=== PATIENT | female | born 1985 | race Caucasian/White ===

== ENCOUNTER 2017-08-03 17:30 | Emergency (ER) | payer MEDICAID ==
[~2017-08-03] VITALS: Ht 172.7 cm; Wt 64.8 kg
[~2017-08-03 17:30] MED LIST: ALBU8.5H5 INH; CARB200T2 PO; PROM25AM6 PO
[2017-08-03] MEDS ORDERED: SODIUM CHLORIDE FLUSH 10ML SYR IVF ONE (18:00)
[2017-08-03] MEDS ORDERED: SODIUM CHLORIDE 0.9% 1,000ML IVBOLUS ONE (18:00)
[2017-08-03] MEDS ORDERED: METOCLOPRAMIDE 5 MG/ML, 2ML IVPush ONE (18:00)
[2017-08-03] MEDS ORDERED: METOCLOPRAMIDE 5 MG/ML, 2ML ONE (18:14)
[2017-08-03] MEDS ORDERED: MORPHINE SULFATE 4 MG/ML, 1ML ONE ×2 (18:14→19:02)
[2017-08-03 18:19] LABS: BASOPHILS # (AUTO) 0.05 x10^3/uL (0-0.1); BASOPHILS % (AUTO) 1 % (0-1); EOSINOPHILS # (AUTO) 0.04 x10^3/uL (0-0.4); EOSINOPHILS % (AUTO) 1 % (1-7); LYMPHOCYTES # (AUTO) 1.78 x10^3/uL (1-3.4); LYMPHOCYTES % (AUTO) 29 % (22-44); MD NO; MEAN PLATELET VOLUME 8.1 fL (7.4-10.4); MONOCYTES # (AUTO) 0.29 x10^3/uL (0.2-0.8); MONOCYTES % (AUTO) 5 % (2-9); NEUTROPHILS # (AUTO) 3.96 x10^3/uL (1.8-6.8); NEUTROPHILS % (AUTO) 65 % (42-75); PLATELET COUNT 208 x10^3/uL (130-400); RED BLOOD COUNT 4.34 x10^6/uL (3.82-5.3); RED CELL DISTRIBUTION WIDTH 13.2 % (9.6-15.2)
[2017-08-03] MEDS: MORPHINE SULFATE 4 MG/ML, 1ML IVPush PRN ×3 (18:20→19:04)
[2017-08-03 18:29] LABS: ALANINE AMINOTRANSFERASE 36 U/L (12-78); ALBUMIN 4.1 g/dL (3.4-5.0); ANION GAP 8 mmol/L (5-15); CALCIUM 8.7 mg/dL (8.5-10.1); CHLORIDE 114 mmol/L (98-107); CREATININE 0.78 mg/dL (0.55-1.02)
[2017-08-03 18:43] LABS: ALKALINE PHOSPHATASE 82 U/L (45-117); BILIRUBIN,TOTAL 0.3 mg/dL (0.2-1.0); TOTAL PROTEIN 7.2 g/dL (6.4-8.2)
[2017-08-03 18:57] VITALS: BP 108/72
[2017-08-03 19:10] LABS: MICROSCOPIC INDICATED
[2017-08-03 19:21] LABS: CULTURE INDICATED? NO
== END 2017-08-03 20:01 | disposition home or self-care (01) ==
LOC: ED 19:45
DX: R10.9 Unspecified abdominal pain (principal); R11.2 Nausea with vomiting, unspecified; J45.909 Unspecified asthma, uncomplicated; Z87.442 Personal history of urinary calculi; Z90.710 Acquired absence of both cervix and uterus
CPT/HCPCS: 36415; 74176; 80053; 81001; 85025; 96361; 96374; 96375; 96376; 99285; J2765; J7030

== ENCOUNTER 2018-09-03 19:03 | Emergency (ER) | payer MEDICAID ==
[~2018-09-03] VITALS: Ht 172.7 cm; Wt 67.0 kg
[2018-09-03 19:07] VITALS: BP 106/78
[2018-09-03] MEDS ORDERED: ACETAMINOPHEN 500 MG TABLET PO ONE (20:00)
[2018-09-03] MEDS ORDERED: PROMETHAZINE 25 MG/ML, 1ML IM ONE (20:00)
[2018-09-03] MEDS ORDERED: PROMETHAZINE 25 MG/ML, 1ML ONE (20:11)
[2018-09-03] MEDS ORDERED: ACETAMINOPHEN 500 MG TABLET ONE (20:12)
== END 2018-09-03 20:52 | disposition home or self-care (01) ==
LOC: ED 19:57
DX: M94.0 Chondrocostal junction syndrome [Tietze] (principal); R05 Cough; R06.00 Dyspnea, unspecified; R07.89 Other chest pain; J45.909 Unspecified asthma, uncomplicated; Z90.89 Acquired absence of other organs; Z90.49 Acquired absence of other specified parts of digestive tract; Z90.710 Acquired absence of both cervix and uterus
CPT/HCPCS: 71046; 93005; 96372; 99283; J2550

== ENCOUNTER 2019-02-13 19:09 | Emergency (ER) | payer MEDICAID ==
[~2019-02-13] VITALS: Ht 172.7 cm; Wt 62.0 kg
[2019-02-13] MEDS ORDERED: METOCLOPRAMIDE 5 MG/ML, 2ML IVPush ONE (19:30)
[2019-02-13] MEDS ORDERED: SODIUM CHLORIDE FLUSH 10ML SYR IVF ONE (19:30)
--- NOTE | 2019-02-13 19:32 | NUR ---
ER PA WAS IN TO SEE PT. PT IN MODERATE DISTRESS D/T ABD PAIN.
--- NOTE | 2019-02-13 19:47 | NUR ---
IV EST'D AND BLOOD DRAWN. PT TO XR VIA [facility].
[2019-02-13] MEDS ORDERED: METOCLOPRAMIDE 5 MG/ML, 2ML ONE (19:54)
[2019-02-13] MEDS ORDERED: MORPHINE SULFATE 4 MG/ML, 1ML ONE ×2 (19:55→21:04)
[2019-02-13 19:57] LABS: BASOPHILS # (AUTO) 0.04 x10^3/uL (0-0.1); BASOPHILS % (AUTO) 1 % (0-1); EOSINOPHILS # (AUTO) 0.08 x10^3/uL (0-0.4); EOSINOPHILS % (AUTO) 1 % (1-7); LYMPHOCYTES # (AUTO) 2.45 x10^3/uL (1-3.4); LYMPHOCYTES % (AUTO) 43 % (22-44); MD NO; MEAN CORPUSCULAR HEMOGLOBIN 31.3 pg (27.0-34.8); MEAN CORPUSCULAR HGB CONC 33.2 g/dL (32.4-35.8); MEAN CORPUSCULAR VOLUME 94.4 fL (80-100); MEAN PLATELET VOLUME 7.7 fL (7.4-10.4); MONOCYTES # (AUTO) 0.27 x10^3/uL (0.2-0.8); MONOCYTES % (AUTO) 5 % (2-9); NEUTROPHILS # (AUTO) 2.92 x10^3/uL (1.8-6.8); NEUTROPHILS % (AUTO) 51 % (42-75); PLATELET COUNT 236 x10^3/uL (130-400); RED BLOOD COUNT 4.51 x10^6/uL (3.82-5.3); RED CELL DISTRIBUTION WIDTH 12.9 % (9.6-15.2)
[2019-02-13] MEDS: MORPHINE SULFATE 4 MG/ML, 1ML IVPush PRN ×2 (19:58→21:07)
[2019-02-13 20:07] LABS: ALANINE AMINOTRANSFERASE 25 U/L (12-78); ALBUMIN 3.9 g/dL (3.4-5.0); ANION GAP 5 mmol/L (5-15); CALCIUM 8.6 mg/dL (8.5-10.1); CHLORIDE 108 mmol/L (98-107); CREATININE 0.84 mg/dL (0.55-1.02)
[2019-02-13 20:09] LABS: ALKALINE PHOSPHATASE 89 U/L (45-117); BILIRUBIN,TOTAL 0.4 mg/dL (0.2-1.0); TOTAL PROTEIN 7.3 g/dL (6.4-8.2)
--- NOTE | 2019-02-13 20:10 | NUR ---
NATHAN SULLIVAN AT FOR RECHECK.
[2019-02-13] MEDS ORDERED: ESTR1TAB15 PO (20:17)
[2019-02-13] MEDS ORDERED: MONT10TA6 PO (20:17)
[2019-02-13] MEDS ORDERED: CARB200T PO (20:17)
[2019-02-13 20:31] LABS: MICROSCOPIC AUTO
--- NOTE | 2019-02-13 20:35 | NUR ---
PT TO CT VIA [facility].
[2019-02-13 20:42] LABS: CULTURE INDICATED? YES
[2019-02-13] MEDS ORDERED: OMNIPAQUE 350 MG/ML, 100ML BOTTLE ONE (20:45)
[2019-02-13 21:11] VITALS: BP 97/62
--- NOTE | 2019-02-13 21:19 | NUR ---
PT MEDICATED WITH MORPHINE AGAIN FOR ABD PAIN /. ER PA WAS IN FOR RECHECK, PT TO BE DISCHARGED.
[2019-02-13 21:21] LABS: AMPHETAMINE SCREEN, URINE Negative (Negative); BARBITURATE SCREEN, URINE Negative (Negative); BENZODIAZEPINE SCREEN, URINE Negative (Negative); CANNABINOID SCREEN, URINE Positive (Negative); COCAINE SCREEN, URINE Negative (Negative); METHADONE SCREEN, URINE Negative (Negative); OPIATE SCREEN, URINE Negative (Negative)
--- NOTE | 2019-02-13 21:34 | NUR ---
D/C INSTRUCTIONS, MEDS & F/U APPT RV'WD WITH PT, SHE VERBALIZES UNDERSTANDING. RX GIVEN X2. PT STATES SHE'S ALLERGIC TO [facility] BUT DECLINES A DIFFERENT RX; STATES SHE HAS A PHENERGAN RX AT HOME FOR NAUSEA IF SHE NEEDS IT. PT AMBULATED OUT OF ED WITHOUT DIFFICULTY, STATES A FRIEND WILL PICK HER UP.
== END 2019-02-13 21:37 | disposition home or self-care (01) ==
LOC: ED 21:06
DX: K52.9 Noninfective gastroenteritis and colitis, unspecified (principal); F17.210 Nicotine dependence, cigarettes, uncomplicated; J45.909 Unspecified asthma, uncomplicated; R11.15 Cyclical vomiting syndrome unrelated to migraine; Z90.49 Acquired absence of other specified parts of digestive tract
CPT/HCPCS: 36415; 74021; 74177; 80053; 80307; 81001; 83690; 85025; 87086; 96374; 96375; 96376; 99284; J2270; J2765; Q9967

== ENCOUNTER 2020-08-10 18:18 | Emergency (ER) | payer MEDICAID ==
[~2020-08-10] VITALS: Ht 172.7 cm; Wt 81.1 kg
[~2020-08-10 18:18] MED LIST changes: +CARB200T PO; +ESTR1TAB15 PO; +MONT10TA6 PO
[2020-08-10] MEDS ORDERED: PROMETHAZINE 25 MG/ML, 1ML ONE (18:59)
[2020-08-10] MEDS ORDERED: HYDROmorphone 1 MG/ML, 1ML INJ ONE (18:59)
[2020-08-10] MEDS ORDERED: SODIUM CHLORIDE FLUSH 10ML SYR IVF ONE (19:00)
[2020-08-10] MEDS ORDERED: HYDROmorphone 1 MG/ML, 1ML INJ IV ONE (19:00)
[2020-08-10] MEDS ORDERED: PROMETHAZINE 25 MG/ML, 1ML IM ONE (19:00)
[2020-08-10] MEDS ORDERED: SODIUM CHLORIDE 0.9% 1,000 ML IV ONE (19:00)
--- NOTE | 2020-08-10 19:07 | NUR ---
PIV PLACED, LABS DRAWN AND SENT TO LAB WITH LAB SLIP. MEDS ADMIN PER JUN. IVF RUNNING. PT AWARE OF NEED FOR URINE SAMPLE. PT CONNECTED TO MONITORING. CALL LIGHT IN REACH.
[2020-08-10 19:17] LABS: ALANINE AMINOTRANSFERASE 22 U/L (12-78); ALBUMIN 3.5 g/dL (3.4-5.0); ANION GAP 5 mmol/L (5-15); CALCIUM 8.9 mg/dL (8.5-10.1); CHLORIDE 113 mmol/L (98-107); CREATININE 0.68 mg/dL (0.55-1.02)
[2020-08-10 19:19] LABS: ALKALINE PHOSPHATASE 110 U/L (45-117); BASOPHILS % (AUTO) 1 % (0-1); BILIRUBIN,TOTAL 0.1 mg/dL (0.2-1.0); EOSINOPHILS % (AUTO) 2 % (1-7); LYMPHOCYTES % (AUTO) 43 % (22-44); MEAN CORPUSCULAR HGB CONC 33.5 g/dL (32.4-35.8); MEAN PLATELET VOLUME 7.7 fL (7.4-10.4); MONOCYTES % (AUTO) 6 % (2-9); NEUTROPHILS % (AUTO) 49 % (42-75); PLATELET COUNT 217 x10^3/uL (130-400); RED BLOOD COUNT 4.46 x10^6/uL (3.82-5.3); TOTAL PROTEIN 6.5 g/dL (6.4-8.2)
--- NOTE | 2020-08-10 19:20 | NUR ---
PT AMBULATED TO RESTROOM WITH STEADY GAIT TO PROVIDE URINE SAMPLE. UA COLLECTED AND SENT TO LAB.
[2020-08-10 19:23] LABS: MD NO
[2020-08-10 19:30] LABS: MICROSCOPIC INDICATED
[2020-08-10] MEDS ORDERED: OMNIPAQUE 350 MG/ML, 100ML BOTTLE ONE (19:46)
--- NOTE | 2020-08-10 19:51 | NUR ---
PT BACK FROM CT. IVF RUNNING. PT STATES PAIN IS BETTER.
--- NOTE | 2020-08-10 19:58 | NUR ---
ALL RESULTS ARE BACK AT THIS TIME. CHART UP FOR RECHECK.
[2020-08-10 20:52] VITALS: BP 110/72
== END 2020-08-10 20:54 | disposition home or self-care (01) ==
LOC: ED 18:48
DX: N30.00 Acute cystitis without hematuria (principal); K59.00 Constipation, unspecified; R10.32 Left lower quadrant pain; R11.2 Nausea with vomiting, unspecified; J45.909 Unspecified asthma, uncomplicated; F17.200 Nicotine dependence, unspecified, uncomplicated; Z88.8 Allergy status to other drugs, medicaments and biological substances; Z90.49 Acquired absence of other specified parts of digestive tract; Z90.89 Acquired absence of other organs; Z90.710 Acquired absence of both cervix and uterus
CPT/HCPCS: 36415; 74177; 80053; 81001; 83690; 85025; 87086; 96361; 96372; 96374; 99285; J1170; J2550; J7030; Q9967

== ENCOUNTER 2020-10-31 08:46 | Emergency (ER) | payer MEDICAID ==
[~2020-10-31] VITALS: Ht 172.7 cm; Wt 78.0 kg
--- NOTE | 2020-10-31 09:32 | NUR ---
MID ABD RADIATING TO LEFT FLANK X 2 DAYS WITH N/V HX OF UTI/KIDNEY STONE/MARISOL/APPY/HYSTERECTOMY/DIVERTICULITIS APPEARS WELL CC UA COLLECTED-SENT TO LAB UPDATED ON ESTIMATED POC
[2020-10-31 09:50] LABS: MICROSCOPIC INDICATED
[2020-10-31] MEDS ORDERED: MORPHINE SULFATE 4 MG/ML, 1ML IVPush PRN (10:00)
--- NOTE | 2020-10-31 10:04 | NUR ---
LAB AT BEDSIDE
[2020-10-31 10:05] LABS: BASOPHILS % (AUTO) 1 % (0-1); EOSINOPHILS % (AUTO) 2 % (1-7); LYMPHOCYTES % (AUTO) 38 % (22-44); MEAN CORPUSCULAR HEMOGLOBIN 31.4 pg (27.0-34.8); MEAN CORPUSCULAR HGB CONC 33.8 g/dL (32.4-35.8); MEAN PLATELET VOLUME 7.3 fL (7.4-10.4); MONOCYTES % (AUTO) 7 % (2-9); NEUTROPHILS % (AUTO) 52 % (42-75); PLATELET COUNT 210 x10^3/uL (130-400); RED BLOOD COUNT 4.52 x10^6/uL (3.82-5.3); RED CELL DISTRIBUTION WIDTH 13.2 % (9.6-15.2)
[2020-10-31 10:16] LABS: ALANINE AMINOTRANSFERASE 22 U/L (12-78); ALBUMIN 3.4 g/dL (3.4-5.0); ANION GAP 2 mmol/L (5-15); CALCIUM 8.9 mg/dL (8.5-10.1); CHLORIDE 112 mmol/L (98-107); CREATININE 0.67 mg/dL (0.55-1.02)
[2020-10-31 10:18] LABS: ALKALINE PHOSPHATASE 82 U/L (45-117); BILIRUBIN,TOTAL 0.3 mg/dL (0.2-1.0); TOTAL PROTEIN 6.7 g/dL (6.4-8.2)
--- NOTE | 2020-10-31 10:18 | NUR ---
IV started 20ga RAC.
[2020-10-31] MEDS ORDERED: SODIUM CHLORIDE 0.9% 1,000ML IVBOLUS ONE (10:30)
[2020-10-31] MEDS ORDERED: METOCLOPRAMIDE 5 MG/ML, 2ML IVPush ONE (10:30)
[2020-10-31] MEDS ORDERED: MORPHINE SULFATE 4 MG/ML, 1ML ONE (10:34)
[2020-10-31] MEDS ORDERED: METOCLOPRAMIDE 5 MG/ML, 2ML ONE (10:34)
--- NOTE | 2020-10-31 11:18 | NUR ---
BACK FROM CT
[2020-10-31] MEDS ORDERED: OMNIPAQUE 350 MG/ML, 100ML BOTTLE ONE (11:23)
[2020-10-31 12:41] VITALS: BP 146/72
== END 2020-10-31 12:43 | disposition home or self-care (01) ==
LOC: ED 09:54
DX: R10.32 Left lower quadrant pain (principal); R11.2 Nausea with vomiting, unspecified; R30.0 Dysuria; F17.200 Nicotine dependence, unspecified, uncomplicated; Z90.89 Acquired absence of other organs; Z90.49 Acquired absence of other specified parts of digestive tract; Z90.710 Acquired absence of both cervix and uterus; Z88.5 Allergy status to narcotic agent; Z88.6 Allergy status to analgesic agent; Z88.8 Allergy status to other drugs, medicaments and biological substances
CPT/HCPCS: 36415; 74177; 80053; 81001; 83690; 85025; 87086; 93005; 96361; 96374; 96375; 99285; J2270; J2765; J7030; Q9967